=== PATIENT | female | born 2000 | race Hispanic/Latino ===

== ENCOUNTER 2021-03-19 09:15 | Outpatient (CLI) | payer OTHER ==
[2021-03-19 10:41] VITALS: BP 111/62
--- NOTE | 2021-03-19 12:06 | Ultrasound Report ---
ULTRASOUND OBSTETRIC LIMITED ULTRASOUND BIOPHYSICAL PROFILE INDICATION / CLINICAL INFORMATION: bpp/arline. Clinical Gestational Age (GA): 30.2 weeks.days COMPARISON: None available. FINDINGS: BREATHING MOVEMENT = 2 GROSS BODY MOVEMENT = 2 TONE = 2 QUALITATIVE AMNIOTIC FLUID VOLUME = 2 TOTAL BIOPHYSICAL SCORE = 8/8 HEART RATE (beats per minute): 134 AMNIOTIC FLUID INDEX (cm) = 16.2 (normal = 7-24 cm) PRESENTATION: Cephalic. ADDITIONAL FINDINGS: None. IMPRESSION: 1. Biophysical Score = 8/8 Signer Name: Enoc Nascimento MD Signed: 03/19/2021 12:01 PM Workstation Name: [id number]
== END 2021-03-19 11:45 | disposition home or self-care (01) ==
LOC: TRG 09:15 → APU 09:16 → TRG 11:45
PROVIDERS: ATTEND Obstetrics & Gynecology
DX: Z34.93 Encounter for supervision of normal pregnancy, unspecified, third trimester (principal); Z3A.30 30 weeks gestation of pregnancy
CPT/HCPCS: 76815; 76819